=== PATIENT | male | born 1970 | race Caucasian/White ===

== ENCOUNTER 2019-12-29 15:50 | Emergency (ER) | payer BC ==
[2019-12-29 16:00] VITALS: TEMP 98.4; BMI 25.0
--- NOTE | 2019-12-29 16:56 | PDOC ---
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 Took amlodipine w/o relief. Denies fever, cough, SOB, nausea/vomiting. Feeling anxious past 3 months thinking about EKG, multiple normal blood workup. Past History - Past Medical History Allergies/Adverse Reactions: Allergies Allergy/AdvReac Type Severity Reaction Status Date / Time No Known Allergies Allergy Verified 12/29/19 15:57 Home Medications: Ambulatory Orders Amlodipine Besylate [Norvasc -] 10 mg PO DAILY 12/29/19 Sertraline HCl [Zoloft] 75 mg PO DAILY 12/29/19 Trazodone HCl 150 mg PO HS PRN 12/29/19 COPD: No HTN: Yes Psychiatric Problems: Yes - Psycho Social/Smoking Cessation Hx Smoking History: Never smoked Information on smoking cessation initiated: No Review of Systems - Review of Systems Constitutional: No: Chills, Fever HEENTM: No: Eye Pain, Nose Pain Respiratory: No: Cough, Shortness of Breath Cardiac (ROS): Yes: Chest Pain. No: Palpitations ABD/GI: No: Abdominal Distended, Constipated, Diarrhea, Nausea, Vomiting : No: Burning, Dysuria Musculoskeletal: No: Back Pain, Joint Pain Integumentary: No: Bruising, Flushing Neurological: No: Headache, Seizure Psychiatric: Yes: Anxiety. No: Depression Endocrine: No: Intolerance to Cold, Intolerance to Heat Hematologic/Lymphatic: No: Anemia, Blood Clots *Physical Exam - Vital Signs Last Vital Signs Temp Pulse Resp BP Pulse Ox 98.4 F 81 18 159/93 100 12/29/19 15:58 12/29/19 15:58 12/29/19 15:58 12/29/19 15:58 12/29/19 15:58 - Physical Exam General Appearance: Yes: Nourished, Appropriately Dressed. No: Apparent Distress HEENT: positive: EOMI, SUSSY, Normal Voice, Hearing Grossly Normal. negative: Scleral Icterus (R), Scleral Icterus (L) Respiratory/Chest: positive: Lungs Clear, Normal Breath Sounds. negative: Chest Tender, Respiratory Distress Cardiovascular: positive: Regular Rhythm, Regular Rate, S1, S2. negative: Edema , Murmur Gastrointestinal/Abdominal: positive: Normal Bowel Sounds, Flat, Soft. negative : Tender, Organomegaly Musculoskeletal: positive: Normal Inspection. negative: Muscle Spasm, Vertebral Tenderness Extremity: positive: Normal Capillary Refill Integumentary: positive: Normal Color. 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 negative: Sensory Deficit, Confused, Disoriented ED Treatment Course - LABORATORY CBC & Chemistry Diagram: 12/29/19 17:05 12/29/19 17:05 - ADDITIONAL ORDERS Additional order review: 12/29/19 17:05 RBC 5.70 H MCV 83.7 MCHC 35.4 RDW 12.9 MPV 7.6 Neutrophils % 77.4 Lymphocytes % 13.2 Monocytes % 8.9 Eosinophils % 0.1 Basophils % 0.4 - RADIOLOGY Radiology Studies Ordered: Category Date Time Status CHEST PA & LAT [RAD] Stat Radiology 12/29/19 16:55 Taken Medical Decision Making - Medical Decision Making 12/29/19 16:55 CXR - clear lung tineo EKG NSR, lateral q waves, HR 79, QTc 444, no ST changes --- 49yM w PMHx HTN, anxiety presenting w 1d mild midsternal chest pressure radiating to back d/t anxiety. Low concern for dissection vs ACS (neg trop, no ST changes) vs PNA (clear lung tineo). Given aspirin. 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
[2019-12-29] MEDS ORDERED: ASPIRIN 81 MG CHEWABLE TABLETS PO ONE (17:21)
[2019-12-29 17:28] LABS: BASO % 0.4 % (0-2.0); EOS % 0.1 % (0-4.5); HEMATOCRIT 47.8 % (35.4-49); HEMOGLOBIN 16.9 GM/dL (11.7-16.9); LYMPH % 13.2 % (8-40); MCH 29.6 pg (25.7-33.7); MCHC 35.4 g/dl (32.0-35.9); MEAN CELL VOLUME 83.7 fl (80-96); MEAN PLT VOLUME 7.6 fl (7.5-11.1); MONO % 8.9 % (3.8-10.2); NEUT % 77.4 % (42.8-82.8); PLATELET COUNT 360 K/MM3 (134-434); RDW 12.9 % (11.9-15.9); WHITE BLOOD COUNT 9.1 K/mm3 (4.0-10.0)
[2019-12-29] MEDS ORDERED: ASPIRIN 81 MG CHEWABLE TABLETS ONE (17:43)
[2019-12-29 17:51] LABS: BLOOD UREA NITROGEN 10.1 mg/dL (7-18)
[2019-12-29 17:52] LABS: ALBUMIN 4.5 g/dl (3.4-5.0); BILIRUBIN,TOTAL 1.4 mg/dL (0.2-1); CREATININE 0.9 mg/dL (0.55-1.3); POTASSIUM 3.9 mmol/L (3.5-5.1); TOT PROT 8.3 g/dl (6.4-8.2)
--- NOTE | 2019-12-29 18:07 | PDOC ---
Attending Attestation - Resident Resident Name: Catrina,Huy - ED Attending Attestation I have performed the following: I have examined & evaluated the patient, The case was reviewed & discussed with the resident, I agree w/resident's findings & plan, Exceptions are as noted - HPI HPI: 12/29/19 18:05 49yoM hx of HTN and anxiety disorder prensets w/ episode of chest pain today after carrying multple heavy objects. Pain now resolved, was constant. No sob, no diaphoresis, no n/v/d. Is undergoing outpatient workup with PMD for episodes of chest pain. - Physicial Exam PE: 12/29/19 18:06 nad, well appearing rrr ctabl soft ntnd A&O x 3 ekg nonischemic. - Medical Decision Making 12/29/19 18:06 49yoM w/ chest pain whiel carrying a heavy object, undergoing outpatient evaluation already. - ekg - labs - cxr - Dispo per results. Can DC for continue outpatient f/u if all clear.
[2019-12-29 18:18] VITALS: BP 154/84; PULSE 80
--- NOTE | 2019-12-31 17:17 | EKG ---
Test Reason : Blood Pressure : / mmHG Vent. Rate : 079 BPM Atrial Rate : 079 BPM P-R Int : 128 ms QRS Dur : 096 ms QT Int : 388 ms P-R-T Axes : 032 -04 040 degrees QTc Int : 444 ms NORMAL SINUS RHYTHM MINIMAL VOLTAGE CRITERIA FOR LVH, MAY BE NORMAL VARIANT POOR R WAVE PROGRESSION ABNORMAL ECG NO PREVIOUS ECGS AVAILABLE CLINICAL CORRELATION IS RECOMMENDED Confirmed by DWAIN PAUL, FISH ([id number]) on 12/31/2019 5:17:13 PM Referred By: Confirmed By:FISH PRAKASH MD
== END 2019-12-29 18:20 | disposition home or self-care (01) ==
LOC: JER 15:50
DX: F41.9 Anxiety disorder, unspecified (principal); I10 Essential (primary) hypertension
CPT/HCPCS: 36415; 71046-TC-FY; 80053; 82550; 82553; 84484; 85025; 93005; 93010; 99285-25